=== PATIENT | female | born 1965 | race Caucasian/White ===

== ENCOUNTER 2017-09-06 16:12 | Emergency (ER) | payer OTHER ==
[~2017-09-06] VITALS: Ht 165.1 cm; Wt 90.7 kg
[2017-09-06] MEDS ORDERED: VENL150ER PO (16:38)
[2017-09-06] MEDS ORDERED: IBUP800 PO (17:14)
[2017-09-06] MEDS ORDERED: Norco 5-325 Ta1 EACH PO (17:21)
[2017-09-06] MEDS ORDERED: CRUTCH4 XX (17:21)
== END 2017-09-06 17:27 | disposition home or self-care (01) ==
LOC: ER 16:12
DX: M25.561 Pain in right knee (principal); Z88.0 Allergy status to penicillin; Z79.899 Other long term (current) drug therapy; F41.9 Anxiety disorder, unspecified; F32.9 Major depressive disorder, single episode, unspecified
CPT/HCPCS: 73562-RT; 96372; 99283; J1885